=== PATIENT | female | born 1995 | race Caucasian/White ===

== ENCOUNTER 2016-11-17 23:26 | Emergency (ER) | payer BC ==
[~2016-11-17 23:26] MED LIST: AMANTADINE100 M1; KEFLEX500 M1; KLONOPIN0.5 MG; LAMICTAL25 MG; LOESTRIN FE 1-21 TAB; METADATE CD60 MG; MOTRIN IB200 M1; NO MEDICATIONS; PRILOSEC20 M1 PO; ZOFRAN ODT4 MG PO; ZYRTEC10 M1 PO; ZYRTEC10 M2
== END 2016-11-17 23:52 | disposition home or self-care (01) ==
LOC: SED 23:26
DX: L73.9 Follicular disorder, unspecified (principal); Z88.1 Allergy status to other antibiotic agents; G40.909 Epilepsy, unspecified, not intractable, without status epilepticus
CPT/HCPCS: 99282

== ENCOUNTER 2017-02-25 15:25 | Emergency (ER) | payer BC ==
[~2017-02-25] VITALS: Ht 170.2 cm; Wt 77.1 kg
[2017-02-25] MEDS ORDERED: PRENATAL FORMU1 EACH PO (15:32)
== END 2017-02-25 16:57 | disposition home or self-care (01) ==
LOC: SED 15:25
DX: O99.511 Diseases of the respiratory system complicating pregnancy, first trimester (principal); J02.9 Acute pharyngitis, unspecified; Z3A.13 13 weeks gestation of pregnancy; Z79.899 Other long term (current) drug therapy; Z88.0 Allergy status to penicillin; Z88.8 Allergy status to other drugs, medicaments and biological substances
CPT/HCPCS: 87651; 99283